=== PATIENT | female | born 1965 | race Caucasian/White ===

== ENCOUNTER → 2016-12-18 | Outpatient (CLI) | payer BC ==
[2016-12-18 04:36] LABS: BASOPHILS # (AUTO) 0.1 X10^3/uL (0.0-0.1); BASOPHILS % (AUTO) 0.7 % (0.2-1.0); EOSINOPHILS # (AUTO) 0.4 x10^3/uL (0.0-0.2); HEMOGLOBIN 11.4 g/dL (12.0-16.0); LYMPHOCYTES # (AUTO) 2.9 X10^3/uL (1.3-2.9); LYMPHOCYTES % (AUTO) 24.1 % (21.0-51.0); MEAN CORPUSCULAR HEMOGLOBIN 29.1 pg (27.0-34.0); MEAN CORPUSCULAR HGB CONC 34.5 g/dL (33.0-35.0); MEAN CORPUSCULAR VOLUME 84.3 fL (80.0-100.0); MEAN PLATELET VOLUME 7.3 fL (7.4-11.0); MONOCYTES # (AUTO) 0.8 x10^3/uL (0.3-0.8); NEUTROPHILS # (AUTO) 7.8 x10^3/uL (2.2-4.8); NEUTROPHILS % (AUTO) 65.2 % (42.0-75.0); PLATELET COUNT 516 X10^3/uL (150.0-450.0); RED BLOOD COUNT 3.92 X10^6/uL (3.5-5.4); RED CELL DISTRIBUTION WIDTH 14.3 % (11.6-16.5)
[2016-12-18 04:39] LABS: BLOOD UREA NITROGEN 21 mg/dL (7-18); CALCIUM 9.4 mg/dL (8.5-10.1); CHLORIDE 106 mmol/L (98-107); COR NA(FOR HYPERGLY) 140 mmol/L (136-145); CREATININE 0.98 mg/dL (0.55-1.02); SODIUM 139 mmol/L (136-145); eGFR BLACK RACES > 60 (>60); eGFR NON BLACK RACES > 60 (>60)
[2016-12-18 04:40] LABS: BILIRUBIN,URINE NEGATIVE (NEGATIVE); BLOOD/HEMOGLOBIN,URINE 5+ (NEGATIVE); GLUCOSE, URINE NEGATIVE (NEGATIVE); KETONES,URINE NEGATIVE (NEGATIVE); LEUKOCYTE ESTERASE ,URINE 1+ (NEGATIVE); NITRITES,URINE NEGATIVE (NEGATIVE); PROTEIN,URINE 1+ (NEGATIVE); UROBILINOGEN,URINE NORMAL (NORMAL)
[2016-12-18 04:46] LABS: APPEARANCE,URINE CLEAR (CLEAR); BACTERIA,URINE 1+ /HPF (NEGATIVE); COLOR,URINE YELLOW (YELLOW); RBC,URINE 25-30 /HPF (NEGATIVE); SERUM PREGNANCY TEST, QUAL NEGATIVE <10 mIU/mL; SQUAMOUS EPITHELIAL CELL,UR RARE /HPF (NEGATIVE)
--- NOTE | 2016-12-18 18:14 | RAD ---
HISTORY: Preop Study: Two-view chest Comparison: None Findings: The trachea is midline. The cardiac silhouette is unremarkable. The lungs are clear without focal i nfiltrate or effusion. The bony thorax is unremarkable. IMPRESSION: 1. No acute cardiopulmonary disease. Reported By:
== END | disposition home or self-care (01) ==
LOC: LAB 03:53
PROVIDERS: ATTEND Specialist
DX: Z01.818 Encounter for other preprocedural examination (principal); Z01.810 Encounter for preprocedural cardiovascular examination; Z01.811 Encounter for preprocedural respiratory examination; Z01.812 Encounter for preprocedural laboratory examination; Z32.00 Encounter for pregnancy test, result unknown
CPT/HCPCS: 36415; 71020; 80048; 81001; 84703; 85025; 85610; 85730; 86850; 86900; 86901; 87086

== ENCOUNTER 2016-12-20 06:30 | Observation (INO) | payer BC ==
[~2016-12-20 06:30] MED LIST: ANCEF VIAL 1 GM ONE; LR 1000 ML IV 1,000 ML IV ONE; NS 50 ML IV + SPIKE MINIBAG* 50 ML IV ONE
[2016-12-20] MEDS ORDERED: VASOSTRICT INJ 20 UNITS VIAL ONE (06:43)
[2016-12-20] MEDS ORDERED: DURAMORPH ONE (07:15)
[2016-12-20] MEDS ORDERED: NS 50 ML IV + SPIKE MINIBAG* 50 ML IV ONE (07:39)
[2016-12-20] MEDS ORDERED: ANCEF VIAL 1 GM ONE (07:39)
[2016-12-20] MEDS ORDERED: NS IRRIGATION 1000 ML 1,000 ML IR ONE (07:41)
[2016-12-20] MEDS ORDERED: FENTANYL INJ 100 mcg ONE (08:04)
[2016-12-20] MEDS ORDERED: D5 1/2 NS 1000 ML 1,000 ML IV ONE (09:04)
[2016-12-20] MEDS ORDERED: ANCEF VIAL 1 GM 1 GM in NS 50 ML IV + SPIKE MINIBAG* 50 ML IV PRN (09:14)
[2016-12-20] MEDS ORDERED: D5 1/2 NS 1000 ML 1,000 ML IV SCH ×2 (09:14→17:14)
[2016-12-20] MEDS ORDERED: PHENERGAN INJ 25 MG IVP PRN (09:17)
[2016-12-20] MEDS ORDERED: ZOFRAN INJ 4 MG VIAL IVP PRN ×3 (09:17→10:06)
[2016-12-20] MEDS ORDERED: BENADRYL INJ 50 MG VIAL IVP PRN ×3 (09:17→10:06)
[2016-12-20] MEDS ORDERED: REGLAN INJ 10 MG VIAL IVP PRN ×2 (09:17→10:06)
[2016-12-20] MEDS ORDERED: TORADOL 30 MG VIAL IVP PRN (10:06)
[2016-12-20] MEDS ORDERED: NARCAN INJ IVP PRN (10:06)
[2016-12-20] MEDS ORDERED: PERCOCET TAB 5/325 MG PO PRN ×2 (10:06→11:27)
[2016-12-20] MEDS: D5 1/2 NS 1000 ML 1,000 ML IV SCH ×4 (10:17→22:43)
[2016-12-20] MEDS ORDERED: XANAX PO PRN (11:23)
[2016-12-20] MEDS: COLACE CAP 100 MG PO SCH ×2 (12:20→20:43)
[2016-12-20] MEDS: SYNTHROID 25 mcg TAB PO SCH ×2 (12:21→16:31)
[2016-12-20] MEDS ORDERED: DIPRIVAN VIAL ONE (15:05)
[2016-12-20] MEDS ORDERED: VERSED ONE (15:05)
[2016-12-20] MEDS: TORADOL 30 MG VIAL IVP PRN ×2 (17:32→22:45)
[2016-12-20] MEDS: COREG TAB 12.5 MG PO SCH (20:42)
[2016-12-20] MEDS: NEURONTIN CAP 100 MG PO SCH (20:43)
[2016-12-21 06:07] LABS: BASOPHILS % (AUTO) 0.4 % (0.2-1.0); EOSINOPHILS # (AUTO) 0.4 x10^3/uL (0.0-0.2); EOSINOPHILS % (AUTO) 3.5 % (0.9-2.9); HEMATOCRIT 27.8 % (36.0-47.0); HEMOGLOBIN 9.8 g/dL (12.0-16.0); LYMPHOCYTES # (AUTO) 2.7 X10^3/uL (1.3-2.9); MEAN CORPUSCULAR HEMOGLOBIN 29.8 pg (27.0-34.0); MEAN CORPUSCULAR HGB CONC 35.2 g/dL (33.0-35.0); MEAN CORPUSCULAR VOLUME 84.6 fL (80.0-100.0); MEAN PLATELET VOLUME 7.4 fL (7.4-11.0); MONOCYTES # (AUTO) 0.7 x10^3/uL (0.3-0.8); MONOCYTES % (AUTO) 6.9 % (0.0-13.0); NEUTROPHILS # (AUTO) 6.6 x10^3/uL (2.2-4.8); NEUTROPHILS % (AUTO) 63.2 % (42.0-75.0); PLATELET COUNT 425 X10^3/uL (150.0-450.0); RED BLOOD COUNT 3.28 X10^6/uL (3.5-5.4); RED CELL DISTRIBUTION WIDTH 14.8 % (11.6-16.5); WHITE BLOOD COUNT 10.4 X10^3/uL (3.6-10.0)
[2016-12-21 06:18] LABS: BLOOD UREA NITROGEN 16 mg/dL (7-18); CALCIUM 7.7 mg/dL (8.5-10.1); CARBON DIOXIDE 25.3 mmol/L (21-32); CHLORIDE 104 mmol/L (98-107); COR NA(FOR HYPERGLY) 138 mmol/L (136-145); SODIUM 137 mmol/L (136-145); eGFR BLACK RACES > 60 (>60); eGFR NON BLACK RACES > 60 (>60)
[2016-12-21] MEDS: D5 1/2 NS 1000 ML 1,000 ML IV SCH ×2 (06:22→06:42)
[2016-12-21] MEDS: TORADOL 30 MG VIAL IVP PRN (06:45)
[2016-12-21 07:37] VITALS: BP 110/52
[2016-12-21] MEDS: NEURONTIN CAP 100 MG PO SCH (08:02)
[2016-12-21] MEDS: COREG TAB 12.5 MG PO SCH (08:03)
[2016-12-21] MEDS ORDERED: HYDROCHLOROTHIAZIDE 25 MG TAB PO SCH (09:00)
[2016-12-21] MEDS ORDERED: ZANTAC PO SCH (09:00)
[2016-12-21] MEDS ORDERED: COZAAR PO SCH (09:00)
== END 2016-12-21 09:35 | disposition home or self-care (01) ==
LOC: SURG1 06:30 → MED/SURG 09:38
PROVIDERS: ADMIT Specialist; ATTEND Specialist
PROC: 0UTC7ZZ Resection of Cervix, Via Natural or Artificial Opening (ICD-10-PCS; 2016-12-20)
PROC: 0UT97ZZ Resection of Uterus, Via Natural or Artificial Opening (ICD-10-PCS; principal; 2016-12-20 07:30)
DX: N92.5 Other specified irregular menstruation (principal); N94.6 Dysmenorrhea, unspecified; R93.8 Abnormal findings on diagnostic imaging of other specified body structures; I10 Essential (primary) hypertension; E78.00 Pure hypercholesterolemia, unspecified; E03.8 Other specified hypothyroidism; K21.9 Gastro-esophageal reflux disease without esophagitis; F41.8 Other specified anxiety disorders
CPT/HCPCS: 36415; 80048; 85025; A4216; A4222; G0378; J0690; J1885; J2250; J3010; J3490; J7042; J7120

== ENCOUNTER 2017-06-15 18:47 | Emergency (ER) | payer BC ==
[2017-06-15 18:56] VITALS: BMI 37.9
--- NOTE | 2017-06-15 19:05 | DR.GENAD ---
HPI - PCP Primary Care Physician: SONIA LOVE - HPI Comment HPI Comment: CURRENTLY ON MED FOR SINUS INFECTION. NO FEVER, PAIN LEFT JAW AND EAR, AND ARM. - Complaint/Symptoms Chief Complaint Doctors Comments: ELEVATED BP, LEFT SIDED PARESTHESIA NOTED TONIGHT. Chief Complaint:: "TOOK BP AT HOME SEVERAL TIMES, IT IS EXTREMELY ELEVATED WELL PULSE. SHES BURNING UP HOT AND SHE IS BEING TREATED FOR SINUS INFECTION. I FEEL REAL CLAMMY HOT AND I AM HURTING IN MY LEFT JAW, EAR , ARM. I AM TINGLING. THIS IS THE 3RD TIME I HAVE BEEN ON STERIODS AND ANTIBIOTICS IN THE LAST MONTH." - Nurses notes reviewed Nurses Notes Review: Yes - Source History Provided: Patient, Significant Other - Mode of Arrival Mode of Arrival: Ambulatory - Timing Onset of Chief Complaint: 06/15/17 Came on: Suddenly - Duration Duration: Constant - Severity Severity: Moderate PMH - PMH Past Medical History: Yes Past Medical History: Anxiety, Hypertension, Hyperthyroidism, Hypothyroidism Past Medical History Comment: CHRONIC TACHYCARDIA-STARTED ON HEART MEDS Past Surgical History: Yes Past Surgical History Comment: PARTIAL HYSTERECTOMY - Family History History of Family Medical Conditions: Yes Family Medical History: Diabetes Mellitus, Cancer, [place], Coronary Artery Disease, Hypertension Family Medical History Comment: CVA - Social History Does patient currently use any type of tobacco product: No Have you used tobacco products in the last 12 months: No Type of Tobacco Use: None Alcohol Use: None Do you use any recreational Drugs:: No Lives With: Spouse Lives Where: Home - infectious screening Have you traveled outside the country in the last 6 months?: No Isolation: Standard ROS - Review of Systems Constitutional: Fever, Weakness, Fatigue Eyes: No Symptoms Reported. negative: Eye Pain, Discharge ENTM: Ear Pain. negative: Hearing Loss (DECREASE HEARING.) Respiratoy: Short of Breath (ON EXERTION). negative: Productive Cough, Non- Productive Cough, Wheezing, Hemoptysis Cardiovascular: Chest Pain. negative: Syncope (NEAR SYNCOPAL EPISODES.) Gastrointestinal/Abdominal: Nausea. negative: Abdominal Pain, Constipation, Diarrhea, Vomiting Genitourinary: No Symptoms Reported. negative: Dysuria, Frequency, Hematuria Neurological: Headache, Numbness, Paresthesia, Tingling, Weakness, Dizziness Musculoskeletal: Muscle Pain Integumentary: No Symptoms Reported Hematologic/Lymphatic: No Symptoms Reported Endocrine: No Symptoms Reported All Other Systems: Reviewed and Negative PE - Vital Signs Vitals: Temperature 98.2 F Pulse Rate [Apical] 84 Pulse Rate 101 Respiratory Rate 20 Blood Pressure [Right Arm] 138/88 Blood Pressure 185/95 O2 Sat by Pulse Oximetry 97 - General Limitations: No Limitations General Appearance: Alert - Head Head Exam: Normal Inspection - Eyes Eye exam: Normal Appearance - ENT ENT Exam: Normal External Ear Exam External Ear Exam: Normal External Inspection TM/Canal Exam: Bilateral Normal Nose Exam: Normal Nose Exam Mouth Exam: Normal Inspection Throat Exam: Normal Inspection - Neck Neck Exam: Trachea Midline - Chest Chest Inspection: Symmetric Chest Wall Rise - Respiratory Respiratory Exam: Normal Lung Sounds Bilat Respiratory Exam: Bilateral Clear to Auscultation - Cardiovascular Cardiovascular Exam: Regular Rate, Normal Rhythm, Normal Heart Sounds - Abdominal Exam Abdominal Exam: Normal Bowel Sounds, Soft. negative: Tenderness - Extremities Extremities Exam: Normal Inspection - Back Back Exam: Normal Inspection - Neurologic Neurological Exam: Alert, Oriented X3 - Psychiatric Psychiatric Exam: Normal Affect, Normal Mood - Skin Skin Exam: Normal Color MDM - Additional Information Additional Information Obtained From: Family - Differential Diagnosis Differential Diagnosis: CHEST PAIN, PARESTHESIA, LEFT EAR PAIN, HTN Course - Treatment Treatment: SEE ORDERS. - Education/Counseling Education/Counseling: Patient, Family, Education Educated On: Diagnosis, Needs for Follow Up ROR - Labs Reviewed Laboratory Results Reviewed?: Yes Result Diagrams: 06/15/17 19:04 06/15/17 19:04 Laboratory: WBC 12.9 X10^3/uL (3.6-10.0) H 06/15/17 19:04 RBC 4.72 X10^6/uL (3.5-5.4) 06/15/17 19:04 Hgb 13.7 g/dL (12.0-16.0) 06/15/17 19:04 Hct 39.2 % (36.0-47.0) 06/15/17 19:04 MCV 83.0 fL (80.0-100.0) 06/15/17 19:04 MCH 29.0 pg (27.0-34.0) 06/15/17 19:04 MCHC 34.9 g/dL (33.0-35.0) 06/15/17 19:04 RDW 14.9 % (11.6-16.5) 06/15/17 19:04 Plt Count 445 X10^3/uL (150.0-450.0) 06/15/17 19:04 MPV 7.5 fL (7.4-11.0) 06/15/17 19:04 Neut % (Auto) 64.3 % (42.0-75.0) 06/15/17 19:04 Lymph % (Auto) 23.3 % (21.0-51.0) 06/15/17 19:04 Forrest % (Auto) 7.3 % (0.0-13.0) 06/15/17 19:04 Eos % (Auto) 3.7 % (0.9-2.9) H 06/15/17 19:04 Baso % (Auto) 1.4 % (0.2-1.0) H 06/15/17 19:04 Neut # (Auto) 8.3 x10^3/uL (2.2-4.8) H 06/15/17 19:04 Lymph # (Auto) 3.0 X10^3/uL (1.3-2.9) H 06/15/17 19:04 Forrest # (Auto) 0.9 x10^3/uL (0.3-0.8) H 06/15/17 19:04 Eos # (Auto) 0.5 x10^3/uL (0.0-0.2) H 06/15/17 19:04 Baso # (Auto) 0.2 X10^3/uL (0.0-0.1) H 06/15/17 19:04 Absolute Nucleated RBC 0.0 /100WBC 06/15/17 19:04 INR Target Range - 06/15/17 19:04 INR 0.93 (0.8-1.3) 06/15/17 19:04 APTT 26.6 SECONDS (22.9-36.5) 06/15/17 19:04 PTT Comment - 06/15/17 19:04 D-Dimer 225 ng/mL (0-400) 06/15/17 19:04 Sodium 138 mmol/L (136-145) 06/15/17 19:04 Corrected Sodium 141 mmol/L (136-145) 06/15/17 19:04 Potassium 3.4 mmol/L (3.5-5.1) L 06/15/17 19:04 Chloride 101 mmol/L (98-107) 06/15/17 19:04 Carbon Dioxide 26.7 mmol/L (21-32) 06/15/17 19:04 BUN 16 mg/dL (7-18) 06/15/17 19:04 Creatinine 0.95 mg/dL (0.55-1.02) 06/15/17 19:04 Est GFR (MDRD) Af Amer > 60 (>60) 06/15/17 19:04 Est GFR (MDRD) Non-Af > 60 (>60) 06/15/17 19:04 Glucose 223 mg/dL (65-99) H 06/15/17 19:04 Calcium 8.5 mg/dL (8.5-10.1) 06/15/17 19:04 Corrected Calcium TNP 06/15/17 19:04 Magnesium 1.5 mg/dL (1.7-2.9) L 06/15/17 19:04 Total Bilirubin 0.50 mg/dL (0.2-1.0) 06/15/17 19:04 AST 49 Units/L (15-37) H 06/15/17 19:04 ALT 127 Units/L (12-78) H 06/15/17 19:04 Alkaline Phosphatase 74 Units/L (46-116) 06/15/17 19:04 Creatine Kinase 35 Units/L (26-192) 06/15/17 19:04 CK-MB (CK-2) < 1.0 ng/mL (0-4.0) 06/15/17 19:04 CK/CKMB % Calc 2.9 % (<4) 06/15/17 19:04 Troponin I < 0.02 ng/mL (0-1.5) 06/15/17 19:04 Total Protein 7.7 g/dL (6.4-8.2) 06/15/17 19:04 Albumin 3.5 g/dL (3.4-5.0) 06/15/17 19:04 Globulin 4.2 g/dL (2.5-4.5) 06/15/17 19:04 Albumin/Globulin Ratio 0.8 Ratio (1.1-2.1) L 06/15/17 19:04 - XRAY XRAY Interpreted by: Radiologist XRAY Findings: REPORT DISCUSS WITH PATIENT. - EKG Rhythm: NSR (EKG NOTED.) - Diagnosis Discharge Problem: Paresthesia, Hypokalemia, Hypomagnesemia Chest pain Qualifiers: Chest pain type: other chest pain Qualified Code(s): R07.89 - Other chest pain Hypertension Qualifiers: Hypertension type: essential hypertension Qualified Code(s): I10 - Essential ( primary) hypertension - Discharge Plan Disposition: 01 HOME, SELF-CARE Condition: Stable - Follow ups/Referrals Follow ups/Referrals: SONIA LOVE [Primary Care Provider] - 06/16/17 - Instructions Instructions: Hypomagnesemia, Hypokalemia, Hypertension, [id number], Paresthesia, [id number], Chest Pain Observation Additional Instructions: RETURN TO ED IF WORSE.
[2017-06-15] MEDS ORDERED: ASPIRIN 81 MG CHEWTAB PO ONE (19:07)
[2017-06-15] MEDS ORDERED: ASPIRIN 81 MG CHEWTAB ONE (19:08)
--- NOTE | 2017-06-15 19:14 | RAD ---
HISTORY: Hypertension Study: Single view of the chest. Comparison: 12/18/2016 Findings: The cardiomediastinal silhouette is normal. No focal consolidations, pleural effusions or pneumothora x. Osseous structures demonstrate no acute abnormality. IMPRESSION: 1. No acute cardiopulmonary process. Reported By:
[2017-06-15 19:32] LABS: BASOPHILS # (AUTO) 0.2 X10^3/uL (0.0-0.1); BASOPHILS % (AUTO) 1.4 % (0.2-1.0); EOSINOPHILS # (AUTO) 0.5 x10^3/uL (0.0-0.2); EOSINOPHILS % (AUTO) 3.7 % (0.9-2.9); HEMATOCRIT 39.2 % (36.0-47.0); HEMOGLOBIN 13.7 g/dL (12.0-16.0); LYMPHOCYTES % (AUTO) 23.3 % (21.0-51.0); MEAN CORPUSCULAR HGB CONC 34.9 g/dL (33.0-35.0); MEAN PLATELET VOLUME 7.5 fL (7.4-11.0); MONOCYTES # (AUTO) 0.9 x10^3/uL (0.3-0.8); MONOCYTES % (AUTO) 7.3 % (0.0-13.0); NEUTROPHILS # (AUTO) 8.3 x10^3/uL (2.2-4.8); NEUTROPHILS % (AUTO) 64.3 % (42.0-75.0); PLATELET COUNT 445 X10^3/uL (150.0-450.0); RED BLOOD COUNT 4.72 X10^6/uL (3.5-5.4); RED CELL DISTRIBUTION WIDTH 14.9 % (11.6-16.5); WHITE BLOOD COUNT 12.9 X10^3/uL (3.6-10.0)
[2017-06-15 19:50] LABS: BLOOD UREA NITROGEN 16 mg/dL (7-18); CALCIUM 8.5 mg/dL (8.5-10.1); CARBON DIOXIDE 26.7 mmol/L (21-32); CHLORIDE 101 mmol/L (98-107); COR NA(FOR HYPERGLY) 141 mmol/L (136-145); CREATININE 0.95 mg/dL (0.55-1.02); SODIUM 138 mmol/L (136-145); TROPONIN I < 0.02 ng/mL (0-1.5); eGFR BLACK RACES > 60 (>60); eGFR NON BLACK RACES > 60 (>60)
--- NOTE | 2017-06-15 19:50 | CT ---
History: Left-sided paresthesia and headache Study: CT head without contrast. Sagittal and coronal reformations were provided. Comparison: None Findings: The ventricles and sulci are normal in size and configuration. There is no intracranial hem orrhage or mass or edema or subdural collection of fluid. The calvarium is intact. The paranasal sinu ses are clear. Impression: No acute intracranial disease Reported By:
[2017-06-15 19:55] LABS: ALANINE AMINOTRANSFERASE 127 Units/L (12-78); ALBUMIN 3.5 g/dL (3.4-5.0); ALKALINE PHOSPHATASE 74 Units/L (46-116); ASPARTATE AMINO TRANSFERASE 49 Units/L (15-37); CREATINE KINASE 35 Units/L (26-192); CREATINE KINASE MB < 1.0 ng/mL (0-4.0); MAGNESIUM 1.5 mg/dL (1.7-2.9); TOTAL PROTEIN 7.7 g/dL (6.4-8.2)
[2017-06-15 20:00] LABS: CKMB % 2.9 % (<4)
[2017-06-15] MEDS ORDERED: K-LYTE EFFERVESCENT PO ONE (20:22)
[2017-06-15] MEDS ORDERED: K-LYTE EFFERVESCENT ONE (20:23)
[2017-06-15] MEDS ORDERED: MAG-OX TAB PO ONE (20:24)
[2017-06-15 20:52] VITALS: BP 138/88
== END 2017-06-15 20:56 | disposition home or self-care (01) ==
LOC: ER 18:57
DX: R07.89 Other chest pain (principal); R20.2 Paresthesia of skin; E87.6 Hypokalemia; E83.42 Hypomagnesemia; I10 Essential (primary) hypertension; R94.31 Abnormal electrocardiogram [ECG] [EKG]; R51 Headache
CPT/HCPCS: 36415; 70450; 71045; 80053; 82550; 82553; 83735; 84484; 85025; 85378; 85610; 85730; 93005; 93010; 96365; 99283; 99285; A4222